=== PATIENT | male | born 2000 | race Hispanic/Latino ===

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

== ENCOUNTER 2020-11-25 08:43 | Emergency (ER) | payer MEDICAID, OTHER ==
[~2020-11-25] VITALS: Ht 175.3 cm; Wt 113.4 kg
[2020-11-25 08:49] VITALS: BP 124/75
[2020-11-25 08:55] VITALS: BP 126/62
[2020-11-25] MEDS ORDERED: NAPR-1179 PO (09:15)
== END 2020-11-25 09:28 | disposition home or self-care (01) ==
LOC: EDH 08:43
DX: M79.645 Pain in left finger(s) (principal)
CPT/HCPCS: 99282

== ENCOUNTER 2024-09-10 11:24 | Emergency (ER) | payer SELFPAY ==
[~2024-09-10] VITALS: Ht 180.3 cm; Wt 120.2 kg
[~2024-09-10 11:24] MED LIST: NAPR-1179 PO
[2024-09-10 11:25] VITALS: BP 147/92
[2024-09-10] MEDS: ondanSETRON 4MG INJ IVP STA (11:47)
[2024-09-10] MEDS: FAMOTIDINE 20MG VIAL IV STA (11:47)
[2024-09-10] MEDS: 0.9%NACL 1000ML 1,000 ML IV STA (11:47)
[2024-09-10] MEDS: ketOROlac 15MG/ML VIAL (15MG/ML) IV STA (11:48)
[2024-09-10 12:05] LABS: BASOPHILS # (AUTO) 0.03 K/uL (0.00-0.20); BASOPHILS % (AUTO) 0.2 % (0.0-5.0); EOSINOPHILS # (AUTO) 0.01 K/uL (0.00-0.70); EOSINOPHILS % (AUTO) 0.1 % (0.0-8.0); HEMATOCRIT 47.7 % (42-54); IMMATURE GRANULOCYTE ABSOLUTE 0.11 K/uL (0-1); LYMPHOCYTES # (AUTO) 1.1 K/uL (1.0-4.8); LYMPHOCYTES % (AUTO) 7.1 % (21.0-51.0); MEAN CORPUSCULAR HEMOGLOBIN 29.7 pg (27.0-33.0); MEAN CORPUSCULAR HGB CONC 34.4 g/dL (32.0-36.0); MEAN CORPUSCULAR VOLUME 86.4 fL (79-99); MONOCYTES # (AUTO) 0.8 K/uL (0.1-1.0); MONOCYTES % (AUTO) 5.5 % (3.0-13.0); NEUTROPHILS # (AUTO) 13.1 K/uL (1.8-7.7); NEUTROPHILS % (AUTO) 86.4 % (40.0-77.0); PLATELET COUNT (AUTO) 321 K/uL (130-400); RED BLOOD CELL COUNT(AUTO) 5.52 MIL/uL (4.50-6.20); RED CELL DISTRIBUTION WIDTH 13.3 % (11.0-15.5); WHITE BLOOD COUNT (AUTO) 15.2 K/uL (4.8-10.8)
[2024-09-10 12:15] LABS: CREATININE 1.1 mg/dL (0.5-1.3); POTASSIUM 4.3 mmol/L (3.5-5.1)
[2024-09-10 12:20] LABS: ALBUMIN 3.9 g/dL (3.5-5.0); BILIRUBIN,DIRECT 0.2 mg/dL (0.0-0.3); BILIRUBIN,TOTAL 0.9 mg/dL (0.2-1.0); TOTAL PROTEIN, SERUM 8.2 g/dL (6.0-8.3)
--- NOTE | 2024-09-10 12:28 | ERN ---
ED Note History of Present Illness Stated Complaint: ABDOMINAL PAIN Chief Complaint: Abdominal Pain Time Seen by MD: 11:27 Time Seen by Midlevel: 11:30 Dictation: 24-year-old male coming in with complaints of epigastric pain fever, nausea, vomiting and diarrhea onset yesterday in the morning. Patient states it did before he had fish to eat. Denies any blood in his stool or vomit. Denies any medical or surgical history. No other complaints Allergies: Coded Allergies: No Known Drug Allergies (Verified Allergy, Unknown, 12/18/18) Home Meds Active Scripts Famotidine (Pepcid) 20 Mg Tablet, 1 TAB PO BID for 30 Days, #60 TAB 0 Refills Prov:NORTHRENEE SIGN INSTALLER 09/10/24 Ondansetron (Ondansetron Odt) 4 Mg Tab.rapdis, 1 TAB PO Q6HPRN PRN for nausea/vomiting for 3 Days, #12 TAB 0 Refills Prov:NORTHGERTRUDISRENEE SIGN INSTALLER 09/10/24 Dicyclomine HCl (Bentyl) 20 Mg Tab, 1 TAB PO BID for irritable bowel symptoms for 10 Days, #20 TAB 0 Refills Prov:NORTHGERTRUDISRENEE SIGN INSTALLER 09/10/24 Naproxen Sodium (Anaprox Ds) 550 Mg Tablet, 550 MG PO BID PRN for pain for 5 Days, #10 TAB 0 Refills Prov:RACHELE PATRICK MD 11/25/20 Past Medical History Past Medical History: No Pertinent History Surgical History: Other Surgical History Other: HAND SURGERY Social History: Other Review of System Dictation Constitutional: Negative for fever,chills, and weight loss Eyes: Negative for injury, pain,redness, and discharge ENT: Negative for injury,pain or swelling Cardiovascular: Negative for chest pain, palpitations, and edema Respiratory: Negative for shortness of breath, cough, and wheezing, Abdomen/GI: Complaining of epigastric pain, nausea, vomiting and diarrhea Back: Negative for injury and pain : Negative for injury, bleeding and discharge MS/Extremity: Negative for injury and deformity Skin: Negative for rash, and discoloration Neuro: Negative for headache, weakness, numbness, tingling, and seizure Psych: Negative for suicide ideation, homicidal ideation, and hallucinations Review of Systems: was completed Initial Vital Sign VS Vital Signs Date Time Temp Pulse Resp B/P (MAP) Pulse Ox O2 Delivery O2 Flow Rate FiO2 09/10/24 11:25 99.1 97 18 147/92 99 Room Air Physical Exam Dictation General: awake, alert, NAD Head/Face: Normocephalic, atraumatic Eyes: PERRL, EOMI, vision at baseline ENT: oral cavity clear, TMs clear, no signs of infection Neck: Trachea midline, supple, no nuchal rigidity Cardiovascular: RRR, normal S1/S2, No MRGs, no JVD Respiratory: CTAB, no respiratory distress, No rales or wheezes Abdomen: Soft, non-tender, non-distended, normal bowel sounds, no guarding or re bound. Skin: Warm, dry, normal turgor, no rash MS/Extremity: Pulses equal, no cyanosis, neurovascular intact, FROM Neuro: COAx4, GCS 15, strength 5/5, CN 2-12 intact, normal cerebellar exam, normal gait, Psych: Normal behavior, mood, and affect normal Results (Laboratory/Radiology) Laboratory/Radiology Laboratory Tests Test 09/10/24 11:56 White Blood Count 15.2 K/uL (4.8-10.8) H Red Blood Count 5.52 MIL/uL (4.50-6.20) Hemoglobin 16.4 g/dL (14.0-18.0) Hematocrit 47.7 % (42-54) Mean Corpuscular Volume 86.4 fL (79-99) Mean Corpuscular Hemoglobin 29.7 pg (27.0-33.0) Mean Corpuscular Hemoglobin Concent 34.4 g/dL (32.0-36.0) Red Cell Distribution Width 13.3 % (11.0-15.5) Platelet Count 321 K/uL (130-400) Mean Platelet Volume 10.1 fL (7.5-10.5) Immature Granulocyte % (Auto) 0.7 % (0-1) Neutrophils (%) (Auto) 86.4 % (40.0-77.0) H Lymphocytes (%) (Auto) 7.1 % (21.0-51.0) L Monocytes (%) (Auto) 5.5 % (3.0-13.0) Eosinophils (%) (Auto) 0.1 % (0.0-8.0) Basophils (%) (Auto) 0.2 % (0.0-5.0) Neutrophils # (Auto) 13.1 K/uL (1.8-7.7) H Lymphocytes # (Auto) 1.1 K/uL (1.0-4.8) Monocytes # (Auto) 0.8 K/uL (0.1-1.0) Eosinophils # (Auto) 0.01 K/uL (0.00-0.70) Basophils # (Auto) 0.03 K/uL (0.00-0.20) Absolute Immature Granulocyte (auto 0.11 K/uL (0-1) Nucleated Red Blood Cells 0.0 % (0.0-0.19) White Cell Morphology Comment See comments Sodium Level 138 mmol/L (136-145) Potassium Level 4.3 mmol/L (3.5-5.1) Chloride Level 101 mmol/L (101-111) Carbon Dioxide Level 31 mmol/L (21-32) Blood Urea Nitrogen 18 mg/dL (7-18) Creatinine 1.1 mg/dL (0.5-1.3) Glomerular Filtration Rate Calc 96 mL/min (>90) Random Glucose 111 mg/dL (70-105) H Total Calcium 9.1 mg/dL (8.5-10.1) Total Bilirubin 0.9 mg/dL (0.2-1.0) Direct Bilirubin 0.2 mg/dL (0.0-0.3) Aspartate Amino Transf (AST/SGOT) 30 U/L (10-37) Alanine Aminotransferase (ALT/SGPT) 46 U/L (12-78) Alkaline Phosphatase 95 U/L (50-136) Total Protein 8.2 g/dL (6.0-8.3) Albumin 3.9 g/dL (3.5-5.0) Lipase 26 U/L (16-77) Labs Reviewed?: Yes CT Scan Comment: [place] [id number] [address] IMAGING REPORT Signed PATIENT: LUCIA FRAUSTO MR#: [id number] : 2000 SEX: M AGE: 24 LOCATION: [facility] ORDER [id number] STATUS: REG ER REPORT#: [id number] SERVICE 1243 REASON: rlq pain n/v ORDERING PHYSICIAN: RENEE NORTH NP PROCEDURE: ABD PEL W - CT ABDOMEN/PELVIS W/CONTRAST Exam Type: CT ABDOMEN/PELVIS W/CONTRAST Clinical Information: rlq pain n/v Comparison: None Contrast: 100 cc's Isovue 370 IV, no complications or adverse reactions CT Dose Index (CTDI): 31.60 mGy Dose Length Product (DLP): 1740.80 total mGy-cm Findings: No evidence of nephro or ureterolithiasis is found. No hydronephrosis or ureteral dilatation is seen. The lung bases are clear. The stomach is unremarkable. It shows no wall thickening. No gross ulceration is seen. It is not overly distended. There are no surrounding inflammatory changes. No wall lesions are identified to suggest cancer. The spleen is unremarkable. It is not enlarged. The pancreas shows normal anatomy. It is not fatty replaced. It shows no lesions. The pancreatic duct is not dilated. The gallbladder is unremarkable. It shows no cholelithiasis. The gallbladder wall is normal in thickness. There is no pericholecystic fluid. The is no acute or chronic inflammation noted. The adrenal glands are unremarkable. There is no enlargement. No lesions are noted. The liver is unremarkable. It shows no focal masses. The appendix is unremarkable. It shows no evidence of inflammation. No appendicolith is seen. The small bowel is unremarkable. There is no evidence of dilatation to suggest obstruction. No evidence of adynamic ileus is seen. There is no small bowel wall thickening to suggest enteritis. The colon is unremarkable. The urinary bladder is unremarkable. There is no wall thickening to suggest tumor or inflammation. There are no intraluminal calculi. There are no diverticula. There is no evidence of chronic bladder outlet obstruction. There is no evidence of urinary bladder distention to suggest urinary retention. The other pelvic structures are unremarkable. The bony and vascular structures are unremarkable for the patient's age. IMPRESSION: NEGATIVE CT SCAN OF THE ABDOMEN AND PELVIS WITH ORAL AND IV CONTRAST. This study was performed using dose reduction techniques to include automated exposure control and/or adjustment of the mA and/or kV according to patient size. DICTATED BY: RUDY ZAVALA MD DATE: 09/10/24 0836 ELECTRONICALLY SIGNED BY: RUDY ZAVALA MD DATE: 09/10/24 6704 ED Course ED Course Orders Procedure Category Date Status Time Cbc With Differential LAB 09/10/24 Complete 11:31 Basic Metabolic Panel LAB 09/10/24 Complete 11:31 Lipase LAB 09/10/24 Complete 11:31 Hepatic Function Panel LAB 09/10/24 Complete 11:31 0.9%Nacl 1000ml (Ns PHA 09/10/24 Complete 1000ml) 11:31 Ondansetron 4mg Inj PHA 09/10/24 Complete (Zofran 4mg Inj) 11:31 Ketorolac PHA 09/10/24 Complete Tromethamine 15mg/Ml 11:31 Famotidine 20mg Vial PHA 09/10/24 Complete (Pepcid 20mg Vial) 11:31 Ct Abdomen/Pelvis CT 09/10/24 Resulted W/Contrast 12:43 Iohexol (Omnipaque) PHA 09/10/24 Complete 13:14 Iohexol (Omnipaque) PHA 09/10/24 Complete 13:23 Current Medications Medications (Trade) Dose Ordered Sig/Maciej Route PRN Reason Start Time Stop Time Status Last Admin Dose Admin Famotidine (Pepcid 20mg Vial) 20 mg ONCE STAT IV 09/10/24 11:31 09/10/24 11:33 DC 09/10/24 11:47 Iohexol (Omnipaque) 75 ml STK-MED ONCE IV 09/10/24 13:14 09/10/24 13:15 DC Iohexol (Omnipaque) 35,000 mg STK-MED ONCE IV 09/10/24 13:23 09/10/24 13:23 DC Ketorolac Tromethamine (toRADol) 15 mg ONCE STAT IV 09/10/24 11:31 09/10/24 11:33 DC 09/10/24 11:48 Ondansetron HCl (zoFRAN 4MG INJ) 4 mg ONCE STAT IVP 09/10/24 11:31 09/10/24 11:33 DC 09/10/24 11:47 Sodium Chloride 1,000 ml @ 1,000 mls/hr Q1H STAT IV 09/10/24 11:31 09/10/24 12:30 DC 09/10/24 11:47 Vital Signs Date Time Temp Pulse Resp B/P (MAP) Pulse Ox O2 Delivery O2 Flow Rate FiO2 09/10/24 11:25 99.1 97 18 147/92 99 Room Air Medical Decision Making MDM MDM: 24-year-old male coming in with complaints of epigastric pain fever, nausea, vomiting and diarrhea onset yesterday in the morning. Patient states it did before he had fish to eat. Denies any blood in his stool or vomit. Denies any medical or surgical history. No other complaints. Blood work unremarkable. After medication and fluids patient states he feels much better. Discussed with the patient findings. Discussed that this could be food poisoning and can follow up outpatient with the PCP. We will prescribe patient symptomatic medication to take home. Educated on signs and symptoms of when to return back to the ER. Patient verbalized understanding, answered all questions. Differential diagnosis:, gastroenteritis, cholecystitis, Rationale: Tests considered and ordered secondary to shared decision making include: Previous outside records reviewed: Old ER visits. Risk of complication and/or morbidity or mortality of patient management: None Medications-Per medication reconciliation Need for hospitalization: Patient does not meet criteria for hospitalization. Need for emergency major/minor surgery: No There are no social concerns with this patient. Prescription drug management Prescriptions will include symptomatic care Patient's prior external medical records from other ER visits were reviewed by me as indicated. Prior testing and results from previous visits were reviewed. Prior tests were taken into account with medical decision making and resource utilization, independent historian/historians were used to obtain complete medical history. I independently interpreted the test that were performed, results were reviewed by me and considered findings on radiology if ordered. Medical management and examination interpretation discussions were had by me with other qualified healthcare professionals as indicated for the patient's care. DX & DISP Disposition: Discharge Departure Impression: Primary Impression: Gastroenteritis Condition: Stable Scripts Famotidine (Pepcid) 20 Mg Tablet 1 TAB PO BID for 30 Days, #60 TAB 0 Refills Prov: NORTH,RENEE SIGN INSTALLER 09/10/24 Ondansetron (Ondansetron Odt) 4 Mg Tab.rapdis 1 TAB PO Q6HPRN PRN for nausea/vomiting for 3 Days, #12 TAB 0 Refills Prov: NORTH,RENEE SIGN INSTALLER 09/10/24 Dicyclomine HCl (Bentyl) 20 Mg Tab 1 TAB PO BID for irritable bowel symptoms for 10 Days, #20 TAB 0 Refills Prov: NORTH,RENEE SIGN INSTALLER 09/10/24 Additional Instructions: Stay hydrated, avoid any sugary drinks, spicy food, fried food, fatty food. Start off with clear fluids and increase diet as tolerated. Return to the hospital if you continue to have vomiting despite taking your anti nausea medication. Otherwise follow up with your PCP. Referrals: SELF,REFERRAL (PCP) Time of Disposition: 13:49 I have reviewed the case, and I agree with, Diagnosis and Plan RENEE NORTH NP September 10, 2024 12:28
[2024-09-10] MEDS ORDERED: DICY20TA2 PO (12:41)
[2024-09-10] MEDS ORDERED: ONDA-243 PO (12:41)
[2024-09-10] MEDS ORDERED: FAMO-136 PO (12:41)
[2024-09-10] MEDS ORDERED: IOHEXOL-350 75 ML VIAL IV ONE (13:14)
[2024-09-10] MEDS ORDERED: IOHEXOL 350 MG/ML 100ML INFUS..BTL IV ONE (13:23)
--- NOTE | 2024-09-10 13:39 | HMCIMG ---
Exam Type: CT ABDOMEN/PELVIS W/CONTRAST Clinical Information: rlq pain n/v Comparison: None Contrast: 100 cc's Isovue 370 IV, no complications or adverse reactions CT Dose Index (CTDI): 31.60 mGy Dose Length Product (DLP): 1740.80 total mGy-cm Findings: No evidence of nephro or ureterolithiasis is found. No hydronephrosis or ureteral dilatation is seen. The lung bases are clear. The stomach is unremarkable. It shows no wall thickening. No gross ulceration is seen. It is not overly distended. There are no surrounding inflammatory changes. No wall lesions are identified to suggest cancer. The spleen is unremarkable. It is not enlarged. The pancreas shows normal anatomy. It is not fatty replaced. It shows no lesions. The pancreatic duct is not dilated. The gallbladder is unremarkable. It shows no cholelithiasis. The gallbladder wall is normal in thickness. There is no pericholecystic fluid. The is no acute or chronic inflammation noted. The adrenal glands are unremarkable. There is no enlargement. No lesions are noted. The liver is unremarkable. It shows no focal masses. The appendix is unremarkable. It shows no evidence of inflammation. No appendicolith is seen. The small bowel is unremarkable. There is no evidence of dilatation to suggest obstruction. No evidence of adynamic ileus is seen. There is no small bowel wall thickening to suggest enteritis. The colon is unremarkable. The urinary bladder is unremarkable. There is no wall thickening to suggest tumor or inflammation. There are no intraluminal calculi. There are no diverticula. There is no evidence of chronic bladder outlet obstruction. There is no evidence of urinary bladder distention to suggest urinary retention. The other pelvic structures are unremarkable. The bony and vascular structures are unremarkable for the patient's age. IMPRESSION: NEGATIVE CT SCAN OF THE ABDOMEN AND PELVIS WITH ORAL AND IV CONTRAST. This study was performed using dose reduction techniques to include automated exposure control and/or adjustment of the mA and/or kV according to patient size.
[2024-09-10 14:07] VITALS: PULSE 78; RESP 16; TEMP 98.3; O2SAT 98
== END 2024-09-10 14:40 | disposition home or self-care (01) ==
LOC: EDH 11:24
DX: K52.9 Noninfective gastroenteritis and colitis, unspecified (principal); Z98.890 Other specified postprocedural states; Z79.899 Other long term (current) drug therapy
CPT/HCPCS: 99285; 74177; 96374; 96375; 80076; 80048; 83690; 85025; 36415; J1885; J3490; J7030; J2405; Q9967